=== PATIENT | male | born 1985 | race Caucasian/White ===

== ENCOUNTER 2019-07-03 02:52 | Emergency (ER) | payer OTHER, SELFPAY ==
[2019-07-03 03:03] VITALS: BP 159/86; PULSE 88; RESP 16; TEMP 36.7; O2SAT 97
--- NOTE | 2019-07-03 03:18 | ED.GENADULT ---
HPI - General Adult General Chief complaint: Dental/Oral Stated complaint: ST Time Seen by Provider: 07/03/19 02:57 History of Present Illness HPI narrative: Pt is as 33 y/o male who p/w sinus congestion with sore throat. Ongoing x 2 days. No f/chills/d/soa/cp. No known sick contacts or foreign travel. +strep last week at [facility] and tx with abx. Sx worse when laying down. No OTC's tried. Related Data Allergies Allergy/AdvReac Type Severity Reaction Status Date / Time No Known Allergies Allergy Unknown Unverified 02/11/19 16:11 No Known Allergies Allergy Uncoded 02/11/19 16:11 Review of Systems Review of Systems: All systems reviewed & are unremarkable except as noted in HPI and below Constitutional: Constitutional: Denies chills, Denies fever(s) and Denies weakness ENT: Denies dizziness, Reports nasal congestion and Reports sore throat Respiratory: Respiratory: Reports cough, Denies dyspnea and Denies wheezing Gastrointestinal: Gastrointestinal: Denies nausea and Denies vomiting [facility] Past Medical History Medical History (Updated 07/03/19 @ 03:25 by Chester Ramirez MD) No pertinent past medical history Surgical History Surgical History (Updated 07/03/19 @ 03:23 by Chester Ramirez MD) No pertinent past surgical history Social History Social History (Updated 07/03/19 @ 03:23 by Chester Ramirez MD) Smoking status: Never smoker Exam Const: General: healthy appearing, no acute distress, well developed and alert Orientation/consciousness: patient oriented x3 Limitations: no limitations HENMT: Head: normocephalic and atraumatic Ears: external ears normal and TM's normal bilaterally General nose exam: Normal external nose present Mouth: Yes oropharynx normal and Yes moist mucous membranes Throat: posterior oropharynx normal Resp: Effort & Inspection: normal respiratory effort and able to speak in complete sentences Auscultation: clear to auscultation bilaterally Cardio: Rate: regular rate Rhythm: regular rhythm Peripheral pulses: radial pulses present and popliteal pulses present Neuro: General: patient oriented x3 Speech: normal speech Course Course Emergency Course: URI, supportive care, d/c. Vital Signs Vital signs: Vital Signs Temperature 98.1 F 07/03/19 03:03 Pulse Rate 88 07/03/19 03:03 Respiratory Rate 16 07/03/19 03:03 Blood Pressure 159/86 H 07/03/19 03:03 Pulse Oximetry 97 07/03/19 03:03 Temperature 98.1 F 07/03/19 03:03 Pulse Rate 88 07/03/19 03:03 Respiratory Rate 16 07/03/19 03:03 Blood Pressure 159/86 H 07/03/19 03:03 Pulse Oximetry 97 07/03/19 03:03 Medical Decision Making Vital Signs Vital Signs: Vital Signs Temperature 98.1 F 07/03/19 03:03 Pulse Rate 88 07/03/19 03:03 Respiratory Rate 16 07/03/19 03:03 Blood Pressure 159/86 H 07/03/19 03:03 Pulse Oximetry 97 07/03/19 03:03 Temperature 98.1 F 07/03/19 03:03 Pulse Rate 88 07/03/19 03:03 Respiratory Rate 16 07/03/19 03:03 Blood Pressure 159/86 H 07/03/19 03:03 Pulse Oximetry 97 07/03/19 03:03 Lab Data Labs: Strep Screen Presumptive Negative *(Reference Range: Negative)* Discharge Plan Discharge Clinical Impression: Upper respiratory infection Qualifiers: URI type: unspecified viral URI Qualified Code(s): J06.9 - Acute upper respiratory infection, unspecified Patient Disposition: Home, Self-Care Condition: Stable Additional Instructions: Return to the ER if you cannot breathe, you cannot keep down food/water, or you have other concerns. Prescriptions: New pseudoephedrine-guaifenesin [Mucinex D Maximum Strength] 120-1,200 mg tablet extended release 12 hr 1 tablet PO Q12H PRN (Reason: cold symptoms) Qty: 14 RF: 0 Follow-up/Referrals: PHYSICIAN,SPREAD CUTTER [Primary Care Provider] - 1 Week Stand Alone Forms: Work/School Release IP
[2019-07-03 03:38] VITALS: BP 132/74; PULSE 80; RESP 18; TEMP 36.9; O2SAT 99
== END 2019-07-03 03:40 | disposition home or self-care (01) ==
PROVIDERS: Emergency Provider Emergency Medicine
DX: J06.9 Acute upper respiratory infection, unspecified (principal)
CPT/HCPCS: 87081; 87880; 99283

== ENCOUNTER 2020-03-26 18:16 | Emergency (ER) | payer OTHER, SELFPAY ==
--- NOTE | ~2020-03-26 | XR_ITS ---
EXAMINATION: XR elbow RT 2V INDICATION: Right elbow pain TECHNIQUE: Two views of the right elbow are obtained. COMPARISON: None available FINDINGS: Bone alignment is normal. There is no fracture. No joint effusion is identified. 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 IMPRESSION: 1. No acute osseous abnormality. Reviewed, dictated and finalized at location A. [facility] INCIDENT [facility]P[employer]DER
[2020-03-26 18:19] VITALS: BP 152/102; PULSE 84; RESP 17; TEMP 36.3; O2SAT 100
--- NOTE | 2020-03-26 18:54 | ED.GENADULT ---
HPI - General Adult General Chief complaint: Extremity Injury, Upper <Arin Prince PA-C - Last Filed: 03/26/20 20:34> Stated complaint: Right Arm Pain <Arin Prince PA-C - Last Filed: 03/26/20 20:34> Time Seen by Provider: 03/26/20 18:35 <Arin Prince PA-C - Last Filed: 03/26/20 20:34> Source: patient <GRECIA Whittaker Last Filed: 03/26/20 20:34> Mode of arrival: ambulatory <Arin Prince PA-C - Last Filed: 03/26/20 20:34> Limitations: no limitations <Arin Prince PA-C - Last Filed: 03/26/20 20:34> History of Present Illness HPI narrative: Patient is here for evaluation of right elbow pain after he felt a pop several times while moving a dresser yesterday. He would want to be intubated he states that it hurts to try to start the car breathing tube down her or sisal picker something with his right arm. He is taken nothing for the pain. And he denies any previous injury. <Arin Prince PA-C - Last Filed: 03/26/20 20:34> Onset (ago): day(s) (yesterday) <Arin Prince PA-C - Last Filed: 03/26/20 20:34> Location: upper extremity (right) <GRECIA Whittaker Last Filed: 03/26/20 20:34> Radiation: non-radiation <Arin Prince PA-C - Last Filed: 03/26/20 20:34> Severity: moderate <GRECIA Whittaker Last Filed: 03/26/20 20:34> Quality: aching <GRECIA Whittaker Last Filed: 03/26/20 20:34> Relieving factors: none <GRECIA Whittaker Last Filed: 03/26/20 20:34> Exacerbating factors: movement <Arin Prince PA-C - Last Filed: 03/26/20 20:34> Associated symptoms: denies other symptoms <Arin Prince PA-C - Last Filed: 03/26/20 20:34> Treatments prior to arrival: none <Arin Prince PA-C - Last Filed: 03/26/20 20:34> Related Data Allergies/adverse reactions: Allergies Allergy/AdvReac Type Severity Reaction Status Date / Time No Known Allergies Allergy Unknown Unverified 02/11/19 16:11 No Known Allergies Allergy Uncoded 02/11/19 16:11 <Arin Prince PA-C - Last Filed: 03/26/20 20:34> Review of Systems Review of Systems: All systems reviewed & are unremarkable except as noted in HPI and below <Arin Prince PA-C - Last Filed: 03/26/20 20:34> [facility] Past Medical History Medical History: Medical History No pertinent past medical history <Arin Prince PA-C - Last Filed: 03/26/20 20:34> Surgical History Surgical History: Surgical History No pertinent past surgical history <Arin Prince PA-C - Last Filed: 03/26/20 20:34> Social History Social History: Social History (Updated 03/26/20 @ 19:02 by Arin Prince PA-C) Smoking status: Never smoker Alcohol intake: never Substance use: never <Arin Prince PA-C - Last Filed: 03/26/20 20:34> Exam Const: General: no acute distress and alert <Arin Prince PA-C - Last Filed: 03/26/20 20:34> Orientation/consciousness: patient oriented x3 <Arin Prince PA-C - Last Filed: 03/26/20 20:34> HENMT: Head: normal to inspection <Arin Prince PA-C - Last Filed: 03/26/20 20:34> Resp: Effort & Inspection: normal respiratory effort <Arin Prince PA-C - Last Filed: 03/26/20 20:34> Cardio: Rate: regular rate <GRECIA Whittaker Last Filed: 03/26/20 20:34> Rhythm: regular rhythm <Arin Prince PA-C - Last Filed: 03/26/20 20:34> Neuro: General: moves all extremities <Arin Prince PA-C - Last Filed: 03/26/20 20:34> Extrem: Right upper extremity: normal to inspection, no joint enlargement and elbow/forearm (pain with flexion and rotation. Better with lateral tendon pressure.) <Arin Prince PA-C - Last Filed: 03/26/20 20:34> Psych: Mental Status: mental status grossly normal <GRECIA Whittaker Last Filed: 03/26/20 20:34> [facility]
[2020-03-26] MEDS: IBUPROFEN 400 MG TABLET 800 MG PO (19:40)
[2020-03-26 20:31] VITALS: BP 158/82; PULSE 72; RESP 18; O2SAT 99
== END 2020-03-26 20:33 | disposition home or self-care (01) ==
PROVIDERS: Emergency Provider Emergency Medicine
DX: M77.9 Enthesopathy, unspecified (principal)
CPT/HCPCS: 73070; 99283; A9270